=== PATIENT | male | born 1985 | race Caucasian/White ===

== ENCOUNTER 2022-03-23 16:21 | Emergency (ER) | payer MEDICARE, MEDICAID ==
[~2022-03-23] VITALS: Ht 177.8 cm; Wt 83.9 kg
[~2022-03-23 16:21] MED LIST: GABA300C PO; [UNRECOGNIZED DRUG - CODE] PO; [UNRECOGNIZED DRUG - CODE] PO
[2022-03-23 17:09] VITALS: BP 134/83
[2022-03-23] MEDS ORDERED: AMOX500C25 PO (18:24)
[2022-03-23] MEDS ORDERED: ACET-8386 PO ×2 (18:24→21:10)
[2022-03-23] MEDS ORDERED: IBUP-2213 PO (18:24)
[2022-03-23] MEDS ORDERED: KETOROLAC 30 MG/ML VIAL IM ONE (18:30)
--- NOTE | 2022-03-23 19:50 | NUR ---
Patient discharged with v/s stable. Written and verbal after care instructions ABOUT DENTAL ASBCESSgiven and explained. Patient alert, oriented and verbalized understanding of instructions. Ambulatory with steady gait. All questions addressed prior to discharge. ID band removed. Patient advised to follow up with PMD. Rx of NORCO 5-325, AMOXICILLIN, MOTRIN given. Patient educated on indication of medication including possible reaction and side effects. Opportunity to ask questions provided and answered.
== END 2022-03-23 19:50 | disposition home or self-care (01) ==
LOC: MED 16:21
DX: K08.89 Other specified disorders of teeth and supporting structures (principal); R03.0 Elevated blood-pressure reading, without diagnosis of hypertension; F12.90 Cannabis use, unspecified, uncomplicated; Z79.899 Other long term (current) drug therapy; Z79.891 Long term (current) use of opiate analgesic; Z79.2 Long term (current) use of antibiotics; Z88.8 Allergy status to other drugs, medicaments and biological substances
CPT/HCPCS: 96372; 99283; J1885

== ENCOUNTER 2024-02-15 03:30 | Emergency (ER) | payer OTHER, MEDICAID ==
[~2024-02-15] VITALS: Ht 177.8 cm; Wt 79.4 kg
[~2024-02-15 03:30] MED LIST changes: +ACET-8905 PO; +AMOX500C25 PO; +IBUP-2213 PO
[2024-02-15 03:33] VITALS: BP 151/120; PULSE 80; RESP 20; TEMP 97.8; O2SAT 95
[2024-02-15] MEDS: OLANZapine 10 MG VIAL IM ONE (04:43)
== END 2024-02-15 05:57 | disposition home or self-care (01) ==
LOC: MED 03:30
DX: F15.129 Other stimulant abuse with intoxication, unspecified (principal); T43.655A Adverse effect of methamphetamines, initial encounter; R03.0 Elevated blood-pressure reading, without diagnosis of hypertension; F90.9 Attention-deficit hyperactivity disorder, unspecified type; Z79.1 Long term (current) use of non-steroidal anti-inflammatories (NSAID); Z79.2 Long term (current) use of antibiotics; Z79.899 Other long term (current) drug therapy; Z88.8 Allergy status to other drugs, medicaments and biological substances; Y92.89 Other specified places as the place of occurrence of the external cause
CPT/HCPCS: 96372; 99283; J3490

== ENCOUNTER 2024-02-15 13:56 | Emergency (ER) | payer OTHER, MEDICAID | END 2024-02-15 14:35 | disposition left against medical advice (07) | LOC: MED 13:56 | DX: Z76.0 Encounter for issue of repeat prescription (principal); Z53.21 Procedure and treatment not carried out due to patient leaving prior to being seen by health care provider ==

== ENCOUNTER 2024-02-15 22:11 | Emergency (ER) | payer OTHER, MEDICAID | END 2024-02-15 23:08 | disposition left against medical advice (07) | LOC: MED 22:11 | DX: Z00.8 Encounter for other general examination (principal); Z53.21 Procedure and treatment not carried out due to patient leaving prior to being seen by health care provider ==

== ENCOUNTER 2024-02-19 19:27 | Emergency (ER) | payer OTHER, MEDICAID ==
[~2024-02-19] VITALS: Ht 172.7 cm; Wt 63.5 kg
[2024-02-19 19:35] VITALS: BP_SYST 122; BP_SYST 133; BP_DIAS 73; BP_DIAS 79; PULSE 95; PULSE 99; RESP 20; TEMP 97.5; O2SAT 98
[2024-02-19 20:16] LABS: BASOPHILS % (AUTO) 0.5 % (0.0-2.0); EOSINOPHILS # (AUTO) 0.1 K/uL (0-0.4); EOSINOPHILS % (AUTO) 1.7 % (0.0-4.0); HEMATOCRIT 33.8 % (36-52); HEMOGLOBIN 11.7 g/dL (12.0-18.0); LYMPHOCYTES # (AUTO) 1.2 K/uL (2.0-11.5); LYMPHOCYTES % (AUTO) 22.2 % (20.5-51.1); MEAN CORPUSCULAR HEMOGLOBIN 30 pg (27-31); MEAN CORPUSCULAR HGB CONC 35 g/dL (33-37); MEAN CORPUSCULAR VOLUME 87.4 fL (80-94); MONOCYTES # (AUTO) 0.5 K/uL (0.8-1.0); MONOCYTES % (AUTO) 9.6 % (1.7-9.3); NEUTROPHILS # (AUTO) 3.7 K/uL (1.8-7.7); PLATELET COUNT (AUTO) 345 K/uL (140-450); RED BLOOD CELL COUNT(AUTO) 3.87 MIL/uL (4.20-6.10); RED CELL DISTRIBUTION WIDTH 14.4 % (11.6-13.7); WHITE BLOOD COUNT (AUTO) 5.6 K/uL (4.8-10.8)
[2024-02-19 20:32] LABS: ANION GAP 13.8 (8-16); CALCIUM 8.1 mg/dL (8.5-10.1); CARBON DIOXIDE 25.4 mmol/L (21-32); CREATININE 1.1 mg/dL (0.6-1.3); POTASSIUM 3.2 mmol/L (3.5-5.1)
[2024-02-19 20:42] LABS: ACETAMINOPHEN 1.2 ug/ml (10-30); ALANINE AMINOTRANSFERASE 84 U/L (12-78); ALBUMIN 2.9 g/dL (3.4-5.0); ALCOHOL, BLOOD 28 mg/dL (<10); ALKALINE PHOSPHATASE 70 U/L (50-136); ASPARTATE AMINOTRANSFERASE 72 U/L (15-37); CREATINE KINASE, TOTAL 1560 U/L (39-308); TOTAL BILIRUBIN 0.2 mg/dL (0.0-1.0); TOTAL PROTEIN, SERUM 5.7 g/dL (6.4-8.2)
[2024-02-19 20:43] LABS: SALICYLATE < 2.8 mg/dL (2.8-20.0)
[2024-02-19] MEDS: LORazepam 2 MG/ML VIAL IVP ONE (21:39)
[2024-02-19] MEDS: diphenhydrAMINE 50 MG/ML VIAL IVP ONE (21:40)
[2024-02-19 22:18] VITALS: O2SAT 98
[2024-02-20 01:32] VITALS: O2SAT 98
[2024-02-20] MEDS: OLANZapine 10 MG VIAL IM ONE ×3 (02:34→21:10)
[2024-02-20 02:39] LABS: APPEARANCE,URINE CLEAR (CLEAR); BILIRUBIN,URINE NEGATIVE (NEGATIVE); BLOOD, URINE NEGATIVE (NEGATIVE); COLOR,URINE YELLOW (YELLOW); LEUKOCYTE ESTERASE ,URINE NEGATIVE (NEGATIVE); NITRITE, URINE NEGATIVE (NEGATIVE); PROTEIN,URINE NEGATIVE (NEGATIVE); UGLUCOSE NEGATIVE (NEGATIVE); UROBILINOGEN,URINE 0.2 EU/dL (0.2 - 1)
[2024-02-20 02:51] LABS: AMPHETAMINE, URINE NEGATIVE ng/ml (NEG <=1000); BARBITURATE, URINE NEGATIVE ng/ml (NEG <=200); BENZODIAZEPINE, URINE POSITIVE ng/mL (NEG <=200); CANNABINOID, URINE POSITIVE ng/mL (NEG <=50); COCAINE, URINE NEGATIVE ng/mL (NEG <=300); OPIATE, URINE NEGATIVE ng/mL (NEG <=2000); PHENCYCLIDINE SCREEN,URINE NEGATIVE ng/mL (NEG <=25)
[2024-02-20 03:20] VITALS: O2SAT 98
[2024-02-20] MEDS: LORazepam 2 MG/ML VIAL IVP ONE ×3 (05:25→09:02)
[2024-02-20] MEDS: NACL 0.9% 1,000 ML IV ONE ×2 (05:31→08:16)
[2024-02-20 05:58] VITALS: O2SAT 98
[2024-02-20] MEDS: GABAPENTIN 300 MG CAP PO SCH (11:10)
[2024-02-20] MEDS: OLANZapine 5 MG ODT PO SCH (11:11)
[2024-02-20] MEDS: DOCUSATE SODIUM 100 MG GELCAP PO SCH (11:30)
[2024-02-20] MEDS: OLANZapine 5 MG ODT SL ONE (11:31)
[2024-02-20 13:57] LABS: CREATINE KINASE, TOTAL 743 U/L (39-308)
[2024-02-20] MEDS ORDERED: GABAPENTIN 300 MG CAP PO SCH (21:00)
[2024-02-20] MEDS ORDERED: diphenhydrAMINE 50 MG/ML VIAL IM ONE (21:10)
[2024-02-21] MEDS: diphenhydrAMINE 50 MG CAP PO ONE (00:29)
[2024-02-21] MEDS: IBUPROFEN 600 MG TAB PO ONE (02:34)
[2024-02-21] MEDS: traZODone 50 MG TAB PO SCH (02:59)
[2024-02-21] MEDS ORDERED: BACITRACIN OINT 500 UNITS/GM PKT TP ONE (04:37)
[2024-02-21] MEDS: ACETAMINOPHEN 325 MG TAB PO ONE (06:42)
[2024-02-21] MEDS: LORazepam 2 MG/ML VIAL IVP ONE (07:17)
[2024-02-21] MEDS: POTASSIUM CHLORIDE 10 MEQ TABER PO ONE (08:33)
[2024-02-21] MEDS: NACL 0.9% 1,000 ML IV ONE (08:40)
[2024-02-21 09:15] VITALS: BP 145/92; PULSE 81; RESP 18; TEMP 98.2; O2SAT 98
== END 2024-02-21 09:39 ==
LOC: MED 19:27
DX: R45.851 Suicidal ideations (principal); R45.1 Restlessness and agitation; R41.82 Altered mental status, unspecified; R79.82 Elevated C-reactive protein (CRP); Z79.899 Other long term (current) drug therapy
CPT/HCPCS: 36415; 80048; 80076; 80305; 81003; 82550; 82553; 84484; 85025; 93005; 96361; 96372; 96374; 96375; 96376; 99285; G0480; G0482; J1200; J2060; J3490; J7030; Q0163